=== PATIENT | male | born 1970 | race Caucasian/White ===

== ENCOUNTER → 2017-09-24 | Day surgery (SDC) | payer OTHER ==
[2017-09-08 14:39] VITALS: BMI 27.0
[2017-09-11 09:51] VITALS: Ht 175.3 cm; Wt 85.2 kg
[2017-09-11 10:10] LABS: BASO % 0.4 %; BASO ABS # 0.02 K/uL (0-0.2); EOS ABS # 0.25 K/uL (0-0.5); HEMATOCRIT 43.8 % (42-52); HEMOGLOBIN 15.1 g/dL (14.0-18.0); IG# 0.01 K/uL (0.00-0.02); LYMPH % 40.8 %; LYMPH ABS # 2.05 K/uL (1.2-3.4); MEAN CELL VOLUME 83.6 fL (80-100); MEAN CORPUSCULAR HEMOGLOBIN 28.8 pg (25-34); MEAN CORPUSCULAR HGB CONC 34.5 g/dl (32-36); MEAN PLATELET VOLUME 9.2 fL (7.4-10.4); MONO % 9.6 %; MONO ABS # 0.48 K/uL (0.11-0.59); NEUT ABS # 2.21 K/uL (1.4-6.5); PLATELET COUNT 276 K/uL (130-400); RED CELL DISTRIBUTION WIDTH CV 13.2 % (11.5-14.5); WHITE BLOOD COUNT 5.02 K/uL (4.8-10.8)
--- NOTE | 2017-09-11 10:16 | PAT Medication Instructions ---
Service Date September 11, 2017. Current Home Medication List Alirocumab (Praluent), 1 DOSE IM [id number] Aspirin (Aspirin Chewable), 81 MG PO DAILY Gemfibrozil (Lopid), 600 MG PO BID Lisinopril (Zestril), 1 TAB PO QAM Lorazepam (Ativan), 1 MG PO HS Metoprolol Tartrate (Lopressor) (Lopressor), 50 MG PO BID Nitroglycerin (Nitrostat), 0.4 MG UT PRN PRN for chest pain Medication Instructions For Your Scheduled Surgery - Continue as directed: Alirocumab (Praluent), 1 DOSE IM [id number] Nitroglycerin (Nitrostat), 0.4 MG UT PRN PRN for chest pain - Hold the following medications 24 hours prior to surgery: Gemfibrozil (Lopid), 600 MG PO BID - Hold the following medications the morning of surgery: Lisinopril (Zestril), 1 TAB PO QAM - Take the following medications the morning of surgery with a sip of water OTHERWISE NOTHING TO EAT OR DRINK AFTER MIDNIGHT: Metoprolol Tartrate (Lopressor) (Lopressor), 50 MG PO BID Aspirin (Aspirin Chewable), 81 MG PO DAILY - Take the following medications as scheduled the night before surgery: Metoprolol Tartrate (Lopressor) (Lopressor), 50 MG PO BID Lorazepam (Ativan), 1 MG PO HS If you have any questions please call us at [phone] or [phone] or [phone]
--- NOTE | 2017-09-11 10:47 | DIAGNOSTIC IMAGING REPORT ---
CHEST 2 VIEWS ROUTINE CLINICAL HISTORY: PAT preoperative evaluation COMPARISON STUDY: No previous studies for comparison. FINDINGS: No evidence for cardiac enlargement. High density left infrahilar nodule raising the possibility of calcified granuloma. Lungs otherwise appear clear. Diaphragms smooth. IMPRESSION: 1. Small left infrahilar nodule possibly representing a peripheral calcified granuloma. 2. CT of the chest is recommended for confirmation. The above report was generated using voice recognition software. It may contain grammatical, syntax or spelling errors. Electronically signed by: Ten Irizarry M.D. 09/11/2017 10:46 AM Dictated Date/Time: 09/11/2017 10:45 AM
[2017-09-11 11:30] LABS: CALCIUM 9.3 mg/dl (8.5-10.1); CREATININE 1.03 mg/dl (0.60-1.40); POTASSIUM 4.3 mmol/L (3.5-5.1)
[~2017-09-24] VITALS: Ht 175.3 cm; Wt 85.2 kg
[~2017-09-24] MED LIST: ALIR1INJ IM; ASPCH81X PO; ATROPINE SULFATE 0.1 MG/ML 5ML SYR IV PRN; ATV/1 PO; BUPIVACAINE 0.25% 30 ML VIAL ONE; CEFAZOLIN 2000MG IV PUSH 15 ML IV SCH; DEXAMETHASONE SOD INJ 4 MG/ML VIAL IV PRN; EpHEDrine SULFATE INJ 50 MG/ML AMP IV PRN; EpHEDrine SULFATE INJ 50 MG/ML AMP ONE; EpINEphrine HCL INJ 1 MG/ML 1ML SYRINGE ONE; EpINEphrine INJ 1MG/ML AMP 1 MG/ML AMP ONE; FENTANYL CITRATE INJ 50 MCG/1 ML 2 ML VIAL IV PRN; FENTANYL CITRATE INJ 50 MCG/1 ML 2 ML VIAL ONE; GEMF600T PO; KETO10TA PO; KETOROLAC TROMETHAMINE 30 MG/ML VIAL IV. PRN; LABETALOL HCL IV 5 MG/ML 20ML IV PRN; LACTATED RINGER'S 1000ML 1,000 ML IV SCH; LIDOCAINE HCL 1% MPF 5 ML VIAL ONE; LIDOCAINE HCL 2% 2 ML VIAL (20MG/ML) ONE; LISI-789 PO; METO50TA16 PO; METOCLOPRAMIDE HCL INJ 5 MG/ML 2 ML VIAL IV PRN; MIDAZOLAM HCL 1 MG/ML 2ML VIAL ONE; MoRPHine SULFATE 10 MG/ML CARP/VIAL IV PRN; NTRGSL/4 UT; ONDANSETRON INJ 2 MG/ML 2 ML VIAL IV PRN; ONDANSETRON INJ 2 MG/ML 2 ML VIAL ONE; OXYC-57 PO; OXYCODONE/ACETAMINOPHEN 5-325 TAB PO PRN; PHENYLEPHRINE 100MCG/ML 5ML SYR IV PRN; PROPOFOL IV EMULSION 10 MG/ML 20 ML VIAL ONE; ROCURONIUM BROMIDE 10 MG/ML 5 ML VIAL ONE; ROPIVACAINE 0.5% 5 MG/ML 30 ML VIAL ONE; SODIUM CHLORIDE 0.9% 1000ML 1,000 ML IV SCH
--- NOTE | 2017-09-24 06:46 | History & Physical Bridge Note ---
H&P Re-Evaluation Bridge Note: I have examined the patient, reviewed the History & Physical and in the interval since the performance of the History & Physical I have noted the following changes of clinical significance: No changes noted
--- NOTE | 2017-09-24 09:13 | [facility] Post Operative Brief Note ---
Immediate Operative Summary Operative Date September 24, 2017. Pre-Operative Diagnosis Right shoulder rotator cuff tear Post-Operative Diagnosis Same as preop Procedure(s) Performed Right Shoulder Arthroscopy, Rotator Cuff Repair, Open Biceps Tenodesis, Extensive Debridement Surgeon Dr. Alvares Psychology Associate Surgeon(s) Ariel Hilario PA-C Estimated Blood Loss 5 ML Findings Consistent with Post-Op Diagnosis Specimens None Drains None Anesthesia Type General Regional Complication(s) none Disposition Disposition: Recovery Room / PACU
--- NOTE | 2017-09-24 09:16 | Discharge Instructions-SurgCtr ---
Discharge Instructions Date of Service September 24, 2017. Visit Reason for Visit: Right Shoulder Rupture Subscapularis Tendon Discharge Discharge Diagnosis / Problem: SAME ABOVE Discharge Goals Goal(s): Decrease discomfort, Improve function Activity Recommendations Activity Limitations: as noted below Lifting Limitations: until after follow-up appointment Exercise/Sports Limitations: until after follow-up appointment Shower/Bathe: tomorrow Anesthesia . Post Anesthesia Instructions: If you have had General Anesthesia or IV Sedation: * Do not drive today. * Resume driving when surgeon permits. * Do not make important decisions or sign legal documents today. * Call surgeon for: 1. Temperature elevations greater than 101 degrees F. 2. Uncontrollable pain. 3. Excessive bleeding. 4. Persistent nausea and vomiting. 5. Medication intolerance (nausea, vomiting or rash). * For nausea and vomiting use only clear liquids such as: tea, soda, bouillon until nausea subsides, then gradually increase diet as tolerated. * If you have any concerns or questions, call your surgeon's office. If physician is unavailable and it is an emergency, call 911 or go to the nearest emergency room. . Instructions / Follow-Up Instructions / Follow-Up MEDICATIONS: * Resume previous medications unless instructed otherwise by your surgeon. * Always take pain medication on a full stomach or with food to avoid upset stomach. * Do not drink alcohol or drive while taking narcotics. * Ibuprofen or Tylenol may be taken if narcotic not needed. SPECIAL CARE INSTRUCTIONS: __ None _X_ Keep extremity elevated and iced x 48 hours; apply ice 20-30 minutes 8-10 times/day. May remove at night. _X_ Sling (MAY REMOVE AFTER 48 HOURS ONLY TO SHOWER AND FOR THERAPY) _X_24 hrs/day __ Remove at night __ Shoulder Immobilizer __ 24 hrs/day __ Remove at night _X_ Dressing __ Maintain until seen in office, may shower with plastic over site _X_ Remove dressings in 24-48 hours and then may shower _X_ Cover incisions with band-aids after showering _X_ Do not remove steri-strips Call physician if chills or temperature rises above 102 degrees or pain unrelieved by prescribed pain medications at . . Diet Recommendations Home Diet: no limitations Fluid Restriction: None Procedures Procedures Performed: Right Shoulder Arthroscopy, Rotator Cuff Repair, Open Biceps Tenodesis, Extensive Debridement Pending Studies Studies pending at discharge: no Work Instructions Return To Work: after follow-up Lifting Limitations: NO LIFTING WITH RIGHT ARM Medical Emergencies . Who to Call and When: Medical Emergencies: If at any time you feel your situation is an emergency, please call 911 immediately. . Non-Emergent Contact Non-Emergency issues call your: Primary Care Provider Call Non-Emergent contact if: you have a fever, temperature is above 101.5 . . "Provider Documentation" section prepared by Ariel Hilario. .
--- NOTE | 2017-09-24 10:11 | Anesthesia Progress Nt - [facility] ---
Anesthesia Post Op Note Date & Time September 24, 2017 at 10:11 Vital Signs Pain Intensity: 0 Vital Signs Past 12 Hours Date Time Temp Pulse Resp B/P (MAP) Pulse Ox O2 Delivery O2 Flow Rate FiO2 09/24/17 09:54 36.2 76 16 125/83 (97) 96 Room Air 09/24/17 09:47 71 8 09/24/17 09:47 70 8 99 09/24/17 09:46 130/82 09/24/17 09:45 74 18 98 09/24/17 09:45 74 18 09/24/17 09:45 36.3 72 16 130/82 98 Room Air 09/24/17 09:41 136/80 09/24/17 09:40 72 11 97 09/24/17 09:40 71 11 09/24/17 09:36 126/88 18 09:35 74 16 96 09/24/17 09:35 74 16 09/24/17 09:31 128/84 09/24/17 09:30 77 12 96 09/24/17 09:30 78 12 09/24/17 09:29 76 12 09/24/17 09:29 77 12 96 09/24/17 09:26 135/92 09/24/17 09:24 80 17 09/24/17 09:24 83 17 99 09/24/17 09:21 141/96 09/24/17 09:19 79 19 18 09:19 80 19 97 09/24/17 09:16 134/98 09/24/17 09:14 36.1 85 12 130/91 96 Diffusion Mask 6 09/24/17 09:14 84 130/91 97 18 09:14 84 18 07:26 150/103 09/24/18 07:26 150/103 09/24/18 07:25 65 15 100 17/18 07:25 65 17/18 07:25 65 17/18 07:25 65 15 100 09/24/18 07:22 68 16 133/102 (112) 97 Mask 4 18 07:21 149/99 17/18 07:21 149/99 18 07:20 74 17/18 07:20 74 26 99 18 07:20 74 26 99 5/17/18 07:20 74 /17/18 07:16 134/95 17/18 07:16 134/95 17/18 07:15 68 18 09/24/18 07:15 68 18 133/102 98 17/18 07:15 68 18 133/102 98 17/18 07:15 68 18 17/18 07:10 63 13 17/18 07:10 63 13 98 17/18 07:10 63 13 98 17/18 07:10 63 13 17/18 07:05 69 17 93 17/18 07:05 69 17 93 09/24/18 07:05 70 17 09/24/18 07:05 70 17 09/24/ 07:00 61 12 100 17/18 07:00 61 12 100 17/18 07:00 62 12 17/18 07:00 62 12 09/24/18 06:55 65 12 95 17/18 06:55 66 12 17/18 06:55 66 12 17/18 06:55 65 12 95 09/24/18 06:50 63 13 17/18 06:50 65 13 98 17/18 06:50 63 13 09/24/18 06:50 65 13 98 09/24/18 06:45 62 19 99 17/18 06:45 64 19 17/18 06:45 62 19 99 17/18 06:45 64 19 17/18 06:40 70 20 17/18 06:40 70 20 99 17/18 06:40 70 20 17/18 06:40 70 20 99 17/18 06:33 36.5 70 18 145/96 (112) 98 Room Air Notes Mental Status: alert / awake / arousable, participated in evaluation Pt Amnestic to Procedure: Yes Nausea / Vomiting: adequately controlled Pain: adequately controlled Airway Patency, RR, SpO2: stable & adequate BP & HR: stable & adequate Hydration State: stable & adequate Anesthetic Complications: no major complications apparent
[2017-09-24 10:16] VITALS: BP 136/86; PULSE 62; TEMP 36.4; O2SAT 99
--- NOTE | 2017-09-24 10:23 | OPERATIVE REPORT ---
DATE OF OPERATION: 09/24/2017 PREOPERATIVE DIAGNOSIS: Medially subluxed biceps tendon with superior border subscapularis tear. POSTOPERATIVE DIAGNOSIS: Medially subluxed biceps tendon with superior border subscapularis tear. PROCEDURE: Right shoulder diagnostic arthroscopy with extensive debridement, upper border rotator cuff repair, and open subpec biceps tenodesis. SURGEON: Dr. Tal Alvares INSTRUCTOR SUBSTITUTE COSMETOLOGY: Ariel Hilario PA-C, whose assistance was necessary for positioning the arm and help with instrumentation. ANESTHESIA: General with a right interscalene nerve block. COMPLICATIONS: None. CONDITION: Stable to PACU. INDICATIONS: Tr is a pleasant 47-year-old male who sustained a work comp injury 2 years ago. He underwent a supraspinatus repair by Dr. Garcia. He did well with that. Unfortunately, 2 months ago he was using a grinder setup operator and something kicked back on him and he reinjured his right shoulder. MRI and clinical examination were diagnostic for medially subluxated biceps tendon with tearing of the upper border of the subscapularis. The previous supraspinatus repair looked good. After failing conservative treatment, he elected to undergo arthroscopy. DESCRIPTION OF PROCEDURE: On 09/24/2017, he arrived at [facility] for the above procedure. He was seen in the preoperative holding area and the operative extremity was identified and signed. He was given a preoperative antibiotic and a right interscalene nerve block. He was taken back to the operating room, laid on the table in supine position, and put under general anesthesia. He was then put into the beachchair position. The right shoulder was prepped and draped in sterile fashion. Time-out was done. The patient's operative extremity was properly identified. A scope was introduced in the posterior portal. Diagnostic arthroscopy showed no cartilage damage to the humeral head or the glenoid. There was some fraying of the biceps tendon. There was a tear of the upper border of the subscapularis. There was a little fraying of the anterior labrum. An anterior portal was made and a shaver was used to start debridement of the intraarticular structures. The labrum was debrided. The biceps tendon was arthroscopically tenotomized and the stump was debrided back to stable margins. A Eda cannula was then placed in the anterior portal. The supraspinatus was examined extensively and seemed to be healed nicely. There was a tear of the upper third of the subscapularis tendon. A scope was then put into the subacromial space. A lateral portal was made. A shaver was used to do an extensive debridement of the subacromial and subdeltoid space. It took longer than a normal debridement because there had been a previous arthroscopy. Time was spent removing all scar tissue in the area, especially anteriorly. A Eda cannula was placed in the lateral portal. The lesser tuberosity was then prepared with a ring curette. A 4.75 mm BioComposite SwiveLock suture anchor was placed at the articular footprint. It was loaded with 2 FiberTapes and the FiberTapes were passed through the upper border of subscapularis separately and pulled out. There was a single 4.75 mm BioComposite SwiveLock suture anchor. This gave a nice knotless SpeedBridge repair of the subscapularis. Multiple pictures were taken. The scope was placed back into the glenohumeral joint and the articular margin of the rotator cuff had been restored. Pictures were taken. Arthroscopic instruments were removed from the shoulder and attention was turned to an open biceps tenodesis. A small incision was made over the inferior border of the pec major. Dissection was taken down through the fascia and the long head of biceps tendon was delivered out of the wound. The tendon was then whip stitched at the anticipated level of tenodesis and the remainder of the tendon was discarded. A 6-mm hole was drilled in the biceps groove and the long head of the biceps tendon was tenodesed with an Arthrex biceps button that was passed through the posterior cortex in a tension slide technique to deliver the tendon into the hole. This gave good fixation. The wound was then irrigated and closed with 3-0 Vicryl and running 3-0 Monocryl. Steri-strips were placed. The portal sites were closed with 3-0 nylon. He was then placed in a soft dressing and a regular arm sling. He was then extubated, [facility], and taken to the postanesthesia care unit in stable condition. He tolerated the procedure well. I attest to the content of the Intraoperative Record and any orders documented therein. Any exception s are noted below.
== END | disposition home or self-care (01) ==
LOC: X.SURG 06:04
PROVIDERS: ATTEND Orthopaedic Surgery
DX: S46.811A Strain of other muscles, fascia and tendons at shoulder and upper arm level, right arm, initial encounter (principal); S43.81XA Sprain of other specified parts of right shoulder girdle, initial encounter; W22.8XXA Striking against or struck by other objects, initial encounter; I10 Essential (primary) hypertension; M19.90 Unspecified osteoarthritis, unspecified site; I25.2 Old myocardial infarction; Z88.8 Allergy status to other drugs, medicaments and biological substances